=== PATIENT | female | born 1975 | race Caucasian/White ===

== ENCOUNTER 2018-10-14 10:58 | Day surgery (SDC) | payer OTHER ==
[2018-10-14] VITALS (8 sets, daily range): BP systolic 106–164; BP diastolic 62–83; PULSE 74–89; RESP 13–18; Ht 160 cm; Wt 87.6 kg
[~2018-10-14] VITALS: Ht 160 cm; Wt 87.6 kg
[~2018-10-14 10:58] MED LIST: CEFAZOLIN 2 GM/50 ML (PMX) 50 ML IVPB SCH; SOD CHLORIDE 0.9% 1,000 ML IV SCH
[2018-10-14] MEDS ORDERED: BUPIVACAINE 0.25%/EPI (SDV) 30 ML INJ ONE (11:43)
[2018-10-14] MEDS ORDERED: INSULIN REGULAR, HUMAN 100 UNIT/1 ML 3ML VIAL SC ONE (12:30)
--- NOTE | 2018-10-14 12:49 | PREAC ---
Date/Time of Note Date/Time of Note DATE: 10/14/18 TIME: 12:48 Anesthesia Eval and Record Evaluation Time Pre-Procedure Interview DATE: 10/14/18 TIME: 12:48 Age 43 Sex female NPO: 8 hrs Preoperative diagnosis left breast epithelial mass Planned procedure excision left breast epithelial mass Past Medical History Past Medical History: Includes Cardio: HTN Endo: Diabetes GI: Obesity Surgery & Anesthesia Issues No known issue Meds Anticoagulation: No Beta Diane within 24 hr: No Reason Beta Diane not given: Pt. not on B-Diane No Active Prescriptions or Reported Meds Current Medications Sodium Chloride 1,000 ml @ 75 mls/hr [id number] IV Last administered on 10/14/18at 12:15; Admin Dose 75 MLS/HR; Start 10/14/18 at 06:00; Stop 10/14/18 at 17:00 Cefazolin Sodium/ Dextrose 50 ml @ 100 mls/hr PREOP IVPB ; Start 10/14/18 at 06:00; Stop 10/14/18 at 17:00 Meds reviewed: Yes Allergies Coded Allergies: No Known Allergy (Unverified , 10/14/18) Allergies Reviewed: Yes Labs/Studies Labs Reviewed: Reviewed by anesthesiologist test: Negative Pre-procedure Exam Last vitals Vital Signs Date Temp Pulse Resp B/P (MAP) Pulse Ox O2 O2 Flow FiO2 Time Delivery Rate 10/14/18 97.5 89 18 119/79 96 Room Air 12:23 (92) Airway: Adequate mouth opening, Adequate thyromental dist Mallampati: Mallampati II Teeth: Normal Lung: Normal Heart: Normal ASA Physical Status ASA physical status: 2 Emergency: None Planned Anesthetic General/MAC: MAC Planned Pain Management Parenteral pain med Pre-operative Attestations Prior to commencing anesthesia and surgery, the patient was re-evaluated, there was verification of: *The patient's identity *The results of appropriate recent lab work and preoperative vital signs *The above evaluation not changing prior to induction *Anesthetic plan, risk benefits, alternative and complications discussed with patient/family; questions answered; patient/family understands, accepts and wishes to proceed. Nic Chung M.D. October 14, 2018 12:49
[2018-10-14] MEDS ORDERED: ONDANSETRON 4 MG INJ IV PRN ×2 (13:00→13:30)
[2018-10-14] MEDS ORDERED: LABETALOL HCL 20MG INJ IV PRN (13:00)
[2018-10-14] MEDS ORDERED: TRIMETHOBENZAMIDE 100 MG/ML VIAL IM PRN (13:00)
[2018-10-14] MEDS ORDERED: OXYCODONE/ACETAMINOPHEN (5/325) TAB PO PRN ×2 (13:00)
[2018-10-14] MEDS ORDERED: DIPHENHYDRAMINE 50 MG INJ IV PRN (13:00)
[2018-10-14] MEDS ORDERED: MEPERIDINE 25 MG INJ IV PRN (13:00)
[2018-10-14] MEDS ORDERED: hydrALAzine 20 MG INJ IV PRN (13:00)
[2018-10-14] MEDS ORDERED: MIDAZOLAM 1 MG/ML 2 ML INJ IV PRN (13:00)
[2018-10-14] MEDS ORDERED: FENTAnyl 50 MCG/ML VIAL IV PRN ×3 (13:00)
[2018-10-14] MEDS ORDERED: HYDROmorphONE 1 MG/5 ML IV SYRINGE IV PRN ×3 (13:00)
[2018-10-14] MEDS ORDERED: ALBUTEROL 0.083% (NEB) 2.5 MG/3 ML AMP HHN PRN (13:00)
[2018-10-14] MEDS ORDERED: IPRATROPIUM (NEB) 0.5 MG/2.5 ML AMP HHN PRN (13:00)
[2018-10-14] MEDS ORDERED: EPHEDrine 25 MG/5 ML SYG IV PRN (13:00)
[2018-10-14] MEDS ORDERED: FENTAnyl 50 MCG/ML VIAL ONE (13:03)
[2018-10-14] MEDS ORDERED: MIDAZOLAM 1 MG/ML 2 ML INJ ONE (13:04)
[2018-10-14] MEDS ORDERED: LABETALOL HCL 20MG INJ ONE (13:05)
[2018-10-14] MEDS ORDERED: LIDOCAINE 2% (SDV) 5 ML INJ INJ ONE ×2 (13:17)
--- NOTE | 2018-10-14 13:27 | OPR ---
Date/Time of Note Date/Time of Note DATE: 10/14/18 TIME: 13:24 Operative Report Procedure Date: October 14, 2018 Preoperative Diagnosis Epithelial mass left breast Postoperative Diagnosis Epithelial mass left breast Operation/Procedure Performed Excision of epithelial mass of the left breast Surgeon see signature line Hvac Service Manager None Anesthesia Type: other (Local) Anesthesiologist: Nic Chung M.D. Estimated Blood Loss: minimal Transfusion none Specimen Epithelial mass left breast Grafts/Implants none Complications none Pt Condition Post Procedure: stable Disposition: PACU Indications Patient is a 43-year-old female who presents to the office complaining of a polypoid type epithelial mass of the left lateral breast. She reported growth and discomfort. She was scheduled for excision for symptom relief and definitive pathological diagnosis. All risks and benefits of the procedure including, but not limited to: Wound infection, excessive bleeding, mass recurrence, etc. were all expanded patient full detail. The patient fully understood and wished to proceed with the procedure. Informed consent was obtained. Procedure Description The patient was brought to the operating room and placed supine on the operating table. Bilateral sequential compression devices were placed on both lower extremities. Mass which is located in the lateral aspect of the left breast was preoperatively marked and confirmed with the patient in the holding area. The left breast and chest wall are then prepped and draped in standard surgical fashion. After performance of the surgical timeout, 2% lidocaine with epi nephrine was injected over the area of the mass. Mass then grasped with Pap lap clamp and elevated. It was transected at its base using a 15 blade scalpel. Hemostasis was obtained with electrocautery. 0.25% Marcaine was then injected around the area of the excision site. Incision was then reapproximated using 3- 0 Monocryl suture in running subcuticular fashion. The incision was cleaned and Dermabond was applied. The patient was then transferred to the recovery room in stable condition. All counts were correct at the end of the case x2 EDMOND WALDRON MD October 14, 2018 13:27
[2018-10-14] MEDS ORDERED: IBUPROFEN 600 MG TAB PO PRN (13:30)
--- NOTE | 2018-10-15 14:22 | PAC ---
Date/Time of Note Date/Time of Note DATE: 10/15/18 TIME: 14:22 Post-Anesthesia Notes Post-Anesthesia Note Last documented vital signs Vital Signs Date Temp Pulse Resp B/P (MAP) Pulse Ox O2 O2 Flow FiO2 Time Delivery Rate 10/14/18 97.0 86 18 106/62 98 17:00 (77) 10/14/18 Room Air 13:53 Activity: WNL Respiratory function: WNL Cardiovascular function: WNL Mental status: Baseline Pain reasonably controlled: Yes Hydration appropriate: Yes Nausea/Vomiting absent: Yes Nic Chung M.D. October 15, 2018 14:22
== END 2018-10-14 15:20 | disposition home or self-care (01) ==
LOC: SDS 10:58
PROVIDERS: ATTEND Surgery
DX: D24.2 Benign neoplasm of left breast (principal); I10 Essential (primary) hypertension; E11.9 Type 2 diabetes mellitus without complications; E66.9 Obesity, unspecified; Z79.4 Long term (current) use of insulin
CPT/HCPCS: 19120; 82962; J1815; Z7512; Z7610; 88307; J2250; J3010